=== PATIENT | male | born 1960 | race Two or more races ===

== ENCOUNTER 2023-08-16 12:12 | Emergency (ER) | payer MEDICARE, OTHER ==
[~2023-08-16] VITALS: Ht 172.7 cm; Wt 85.3 kg
[2023-08-16] MEDS ORDERED: TACR1CAP2 GT (12:36)
[2023-08-16] MEDS ORDERED: SIMV10TA98 GT (12:36)
[2023-08-16] MEDS ORDERED: AMOX1TAB15 GT (12:36)
[2023-08-16] MEDS ORDERED: OXYC10TA49 GT (12:36)
[2023-08-16] MEDS ORDERED: PANT40SU2 GT (12:36)
[2023-08-16] MEDS ORDERED: LOPE2CAP GT (12:36)
[2023-08-16] MEDS ORDERED: LABE100T5 GT (12:36)
[2023-08-16] MEDS ORDERED: NALO4SPR NS (12:36)
[2023-08-16] MEDS ORDERED: ACET-2605 GT (12:36)
[2023-08-16] MEDS ORDERED: GABA250S2 GT (12:36)
[2023-08-16] MEDS ORDERED: LIDO1ADH82 TP (12:36)
[2023-08-16] MEDS ORDERED: HYDR200T4 GT (12:36)
[2023-08-16 13:23] LABS: BASOPHILS % (AUTO) 0.3 % (0.0-2.0); EOSINOPHILS # (AUTO) 0.1 K/uL (0.0-0.7); EOSINOPHILS % (AUTO) 0.8 % (0.0-6.0); HEMATOCRIT 29 % (39-51); HEMOGLOBIN 9.6 g/dL (13.5-17.5); LYMPHOCYTES # (AUTO) 0.7 K/uL (0.8-4.8); LYMPHOCYTES % (AUTO) 8.7 % (20.0-44.0); MEAN CORPUSCULAR HEMOGLOBIN 29 PG (26.0-33.0); MEAN CORPUSCULAR HGB CONC 33 g/dl (31.0-36.0); MEAN CORPUSCULAR VOLUME 88 fL (80-96); MONOCYTES # (AUTO) 0.5 K/uL (0.1-1.30); MONOCYTES % (AUTO) 6.3 % (2.0-12.0); NEUTROPHILS # (AUTO) 6.4 K/uL (1.8-8.9); NEUTROPHILS % (AUTO) 83.9 % (43.0-81.0); PLATELET COUNT (AUTO) 368 K/uL (150-450); RED BLOOD CELL COUNT(AUTO) 3.26 MIL/uL (4.5-6.0); RED CELL DISTRIBUTION WIDTH 13.5 % (11.5-15.0); WHITE BLOOD COUNT (AUTO) 7.7 K/uL (4.3-11.0)
[2023-08-16 13:36] LABS: CALCIUM, SERUM 9.2 mg/dL (8.5-10.1); CREATININE 1.2 mg/dL (0.6-1.3); POTASSIUM 4.2 mmol/L (3.5-5.1)
[2023-08-16 13:39] LABS: LACTIC ACID 0.6 mmol/L (0.4-2.0)
[2023-08-16 13:46] LABS: INR 1.06 (0.91-1.10); PARTIAL THROMBOPLASTIN TIME 28.2 SEC (24.3-34.3); PROTHROMBIN TIME 11.2 SECS (9.2-11.1)
[2023-08-16 14:14] LABS: ALBUMIN 2.8 g/dL (3.4-5.0); BILIRUBIN,DIRECT 0.2 mg/dL (0.0-0.2); BILIRUBIN,TOTAL 0.4 mg/dL (0.2-1.0); TOTAL PROTEIN, SERUM 7.9 g/dL (6.4-8.2)
[2023-08-16] MEDS ORDERED: AMOX-430 PO (14:26)
[2023-08-16] MEDS ORDERED: DOXY100T2 PO (14:26)
[2023-08-16] MEDS ORDERED: ACETAMINOPHEN ES 500 MG TABLET PO ONE (15:30)
[2023-08-16] MEDS ORDERED: IBUPROFEN 400 MG TABLET PO ONE (15:30)
[2023-08-16] MEDS ORDERED: IBUPROFEN 400 MG TABLET ONE (15:31)
[2023-08-16] MEDS ORDERED: ACETAMINOPHEN ES 500 MG TABLET ONE (15:31)
[2023-08-16 15:48] VITALS: BP 133/75; TEMP 97.9; O2SAT 98
== END 2023-08-16 15:49 | disposition home or self-care (01) ==
LOC: ER 12:16
DX: J18.9 Pneumonia, unspecified organism (principal); J95.09 Other tracheostomy complication; Z98.890 Other specified postprocedural states; Z79.899 Other long term (current) drug therapy
CPT/HCPCS: 36415; 70360-TC; 71045-TC; 80048-TC; 80076-TC; 83605-TC; 85025-TC; 85730-TC; 87040-TC